=== PATIENT | male | born 1960 | race Caucasian/White ===

== ENCOUNTER → 2020-04-15 | Outpatient (CLI) | payer OTHER ==
[~2020-04-15] MED LIST: LODINE CAP 300300 MG PO; ZOFRAN ODT 4 MG4 MG PO; ZOFRAN ODT 4 MG4 MG SL; ZOFRAN4 MG PO
== END ==
LOC: RAD 10:47
DX: M47.896 Other spondylosis, lumbar region (principal); N20.0 Calculus of kidney
CPT/HCPCS: 72100

== ENCOUNTER → 2020-06-09 | Outpatient (CLI) | payer OTHER | LOC: RAD 09:46 | DX: M51.36 Other intervertebral disc degeneration, lumbar region (principal); M46.88 Other specified inflammatory spondylopathies, sacral and sacrococcygeal region | CPT/HCPCS: 72202; 73502 ==

== ENCOUNTER 2020-08-25 21:27 | Emergency (ER) | payer OTHER ==
[2020-08-25 22:44] LABS: HEMOGLOBIN 15.1 gm/dl (14.0-17.5); RED BLOOD COUNT 4.8 M/UL (4.20-5.50); WHITE BLOOD COUNT 10.3 K/UL (4.5-11.0)
[2020-08-25 23:01] LABS: BUN/CREATININE RATIO 14 (0-10)
== END 2020-08-26 02:36 | disposition home or self-care (01) ==
LOC: ER1 21:27
PROVIDERS: Family Medicine
DX: R10.13 Epigastric pain (principal); R11.0 Nausea; F17.210 Nicotine dependence, cigarettes, uncomplicated
CPT/HCPCS: 80053; 81001; 82150; 83690; 85025; 85610; 96374; 96375; 99284; C9113; J2270; J2405; J7030; Q9967